=== PATIENT | male | born 1965 | race Caucasian/White ===

== ENCOUNTER 2017-06-01 07:09 | Emergency (ER) | payer BC ==
[~2017-06-01] VITALS: Ht 167.6 cm; Wt 95.5 kg
[~2017-06-01 07:09] MED LIST changes: -CIPR-214 PO; -EXEN2AUT; -HYDR2TAB74 PO; -KET10 PO; -METF-420 PO; -METR-160 PO; -ONDA4TAB PO
[2017-06-01] MEDS ORDERED: METF-420 PO (07:16)
[2017-06-01] MEDS ORDERED: OMEP-218 PO (07:16)
[2017-06-01] MEDS ORDERED: EXEN2AUT (07:16)
--- NOTE | 2017-06-01 07:22 | ER Report ---
History and Physical Time Seen By MD: 07:21 Hx. of Stated Complaint: pt reports pain in L groin that started this weekend, worse this morning HPI/ROS CHIEF COMPLAINT: left groin and abdominal pain HISTORY OF PRESENT ILLNESS: This is a 52 year old male. He started having some pain in the left lower abdomen and groin area on Thursday morning. Mild at that time. No instigating activity or movement. Slow worsening over the weekend. Today pain is severe with any movement. Pain stays in the abdomen, does not radiate to back, leg or scrotum. No fevers or chills. Normal urination. Normal bowels. No testicular or scrotal pain. Has not noted a bulging or hardness/mass in abdomen. No history of bowel problems. No surgeries. Pain does worsen with any movement and worsens with flexion of the left leg. REVIEW OF SYSTEMS: Constitutional: No fever or chills. Cardiovascular: No chest pain. Respiratory: No shortness of breath. Gastrointestinal: As above. Genitourinary: As above. Musculoskeletal: No back pain. No extremity pain. Skin: No rashes. Allergies: Coded Allergies: Penicillins (Verified Allergy, Severe, itching and swelling of throat, ) codeine (Verified Allergy, Mild, ITCHING HIVES, 06/01/17) propoxyphene (Unverified Allergy, Unknown, 06/01/17) oxycodone (Verified Adverse Reaction, Mild, EXCESSIVE SEDATION, 06/01/17) Home Meds Active Scripts Ketorolac Tromethamine (KETOROLAC TROMETHAMINE) 10 Mg Tab, 10 MG PO Q6H Y for PAIN, #12 TAB 0 Refills Prov:RODRIGO DINERO MD 06/01/17 Ondansetron (ZOFRAN ODT) 4 Mg Tab.rapdis, 4 MG PO Q6H Y for NAUSEA/VOMITING, # 20 TAB.JONATHAN 0 Refills Prov:RODRIGO DINERO MD 06/01/17 Hydromorphone Hcl (DILAUDID) 2 Mg Tablet, 1 MG PO Q4H Y for PAIN, #8 TAB 0 Refills Prov:RODRIGO DINERO MD 06/01/17 Metronidazole (METRONIDAZOLE) 500 Mg Tablet, 500 MG PO TID, #21 TAB 0 Refills Prov:RODRIGO DINERO MD 06/01/17 Ciprofloxacin Hcl (CIPROFLOXACIN HCL) 500 Mg Tablet, 500 MG PO Q12H, #14 TAB 0 Refills Prov:RODRIGO DINERO MD 06/01/17 Reported Medications Exenatide Microspheres (Bydureon Bcise) 2 Mg/0.85 Ml Auto.injct, QWEEK 06/01/17 Omeprazole Magnesium (PRILOSEC OTC) 20 Mg Tablet.dr, 1 TAB PO QDAY, TAB 06/01/17 Metformin Hcl (METFORMIN HCL) 1,000 Mg Tablet, 1 TAB PO BID, TAB 06/01/17 Discontinued Reported Medications Omeprazole (Omeprazole) 20 Mg Tablet.dr, 20 MG PO QDAY, 0 Refills 10/17/10 Metformin Hcl (Glucophage) 500 Mg Tab, 500 MG PO BIDBS, 0 Refills 10/17/10 [No Rtn Meds] No Conflict Check, 0 Refills 07/16/10 Reviewed Nurses Notes: Yes Hx Smoking: No Smoking Status: Never Smoker Hx Substance Use Disorder: No Hx Alcohol Use: Yes Constitutional Vital Sign - Last 24 Hours 06/01/17 06/01/17 06/01/17 06/01/17 07:12 07:15 07:24 07:39 Temp 98.7 Pulse 109 102 100 Resp 16 B/P (MAP) 142/119 142/119 (127) Pulse Ox 91 90 91 O2 Delivery Room Air 06/01/17 06/01/17 06/01/17 06/01/17 07:54 07:59 08:14 08:29 Pulse 105 104 104 95 B/P (MAP) 103/87 (92) Pulse Ox 89 91 90 94 06/01/17 06/01/17 06/01/17 06/01/17 08:34 08:39 08:44 08:49 Pulse 102 98 97 101 Pulse Ox 89 90 91 06/01/17 06/01/17 06/01/17 06/01/17 08:54 08:59 09:00 09:05 Pulse 100 100 101 B/P (MAP) 97/64 (75) Pulse Ox 91 93 92 06/01/17 06/01/17 06/01/17 06/01/17 09:10 09:15 09:20 09:23 Pulse 102 102 105 B/P (MAP) 108/81 (90) Pulse Ox 90 95 91 Physical Exam General Appearance: The patient is alert. Acute distress due to pain. Eyes: Pupils are equal, round. No pallor, injection or icterus. ENT: Mucous membranes are moist. Normal oral mucosa. Respiratory: Lungs are clear to auscultation. Cardiovascular: Regular rate and rhythm. No murmurs, gallops or rubs. Gastrointestinal: Abdomen is tender in the left lower abdomen. Nondistended. Guarding, but without rebound. No masses or bulging. Normal active bowel sounds. No costovertebral angle tenderness with percussion. Genitourinary: Testicles and scrotum are non-tender. No bulging with increased intraabdominal pressure. Neurological: Alert and oriented x3. Skin: Warm and dry. Musculoskeletal: No pain in the low back or the muscles of the groin. DIFFERENTIAL DIAGNOSIS: After history and physical exam, differential diagnosis was considered for left lower abdominal pain including but not limited to diverticulitis, gastroenteritis, urinary infection, hernias. Medical Decision Making Data Points Result Diagram: 06/01/17 0735 06/01/17 0735 Laboratory Hematology Test 06/01/17 07:20 06/01/17 07:35 Urine Color Yellow Urine Clarity Clear Urine pH 7.0 pH (4.8-9.5) Urine Specific [place] 1.027 Urine Protein Negative mg/dL (NEGATIVE) Urine Glucose (UA) Negative mg/dL (NEGATIVE) Urine Ketones Trace mg/dL (NEGATIVE) Urine Blood Negative (NEGATIVE) Urine Nitrite Negative (NEGATIVE) Urine Bilirubin Negative (NEGATIVE) Urine Urobilinogen 2.0 mg/dL (0.2-1.9) Urine Leukocyte Esterase Negative (NEGATIVE) Urine RBC None /HPF (0-2/HPF) Urine WBC <1 /HPF (0-5/HPF) Urine Squamous Epithelial Cells None /LPF (</=FEW) Urine Bacteria Negative /HPF (NONE-FEW) Urine Mucus Few /HPF (NONE-FEW) Red Blood Count 6.22 M/uL (4.00-5.60) Mean Corpuscular Volume 82.1 fL (80.0-96.0) Mean Corpuscular Hemoglobin 27.9 pg (26.0-33.0) Mean Corpuscular Hemoglobin Concent 34.0 g/dL (32.0-36.0) Red Cell Distribution Width 13.5 % (11.5-14.5) Mean Platelet Volume 9.0 fL (7.2-11.1) Neutrophils (%) (Auto) 68.7 % (39.4-72.5) Lymphocytes (%) (Auto) 18.5 % (17.6-49.6) Monocytes (%) (Auto) 11.0 % (4.1-12.4) Eosinophils (%) (Auto) 1.2 % (0.4-6.7) Basophils (%) (Auto) 0.6 % (0.3-1.4) Nucleated RBC Relative Count (auto) 0.0 /100WBC Neutrophils # (Auto) 9.0 K/uL (2.0-7.4) Lymphocytes # (Auto) 2.4 K/uL (1.3-3.6) Monocytes # (Auto) 1.4 K/uL (0.3-1.0) Eosinophils # (Auto) 0.2 K/uL (0.0-0.5) Basophils # (Auto) 0.1 K/uL (0.0-0.1) Nucleated RBC Absolute Count (auto) 0.00 K/uL Peripheral Blood Smear No Y/N Sodium Level 136 mmol/L (137-145) Potassium Level 3.9 mmol/L (3.5-5.0) Chloride Level 98 mmol/L (98-107) Carbon Dioxide Level 23 mmol/L (22-30) Blood Urea Nitrogen 11 mg/dl (9-21) Creatinine 0.70 mg/dl (0.66-1.25) Glomerular Filtration Rate Calc > 60.0 Random Glucose 158 mg/dl (75-110) Lactate 2.4 mmol/L (0.7-2.1) Calcium Level 9.4 mg/dl (8.4-10.2) Total Bilirubin 0.7 mg/dl (0.2-1.3) Aspartate Amino Transf (AST/SGOT) 25 U/L (0-35) Alanine Aminotransferase (ALT/SGPT) 56 U/L (0-56) Alkaline Phosphatase 78 U/L (0-126) Total Protein 7.8 gm/dl (6.3-8.2) Albumin 4.2 g/dl (3.5-5.0) Chemistry Test 06/01/17 07:20 06/01/17 07:35 Urine Color Yellow Urine Clarity Clear Urine pH 7.0 pH (4.8-9.5) Urine Specific [place] 1.027 Urine Protein Negative mg/dL (NEGATIVE) Urine Glucose (UA) Negative mg/dL (NEGATIVE) Urine Ketones Trace mg/dL (NEGATIVE) Urine Blood Negative (NEGATIVE) Urine Nitrite Negative (NEGATIVE) Urine Bilirubin Negative (NEGATIVE) Urine Urobilinogen 2.0 mg/dL (0.2-1.9) Urine Leukocyte Esterase Negative (NEGATIVE) Urine RBC None /HPF (0-2/HPF) Urine WBC <1 /HPF (0-5/HPF) Urine Squamous Epithelial Cells None /LPF (</=FEW) Urine Bacteria Negative /HPF (NONE-FEW) Urine Mucus Few /HPF (NONE-FEW) White Blood Count 13.2 k/uL (4.5-11.0) Red Blood Count 6.22 M/uL (4.00-5.60) Hemoglobin 17.3 g/dL (14.0-18.0) Hematocrit 51.0 % (42.0-52.0) Mean Corpuscular Volume 82.1 fL (80.0-96.0) Mean Corpuscular Hemoglobin 27.9 pg (26.0-33.0) Mean Corpuscular Hemoglobin Concent 34.0 g/dL (32.0-36.0) Red Cell Distribution Width 13.5 % (11.5-14.5) Platelet Count 285 K/uL (150-450) Mean Platelet Volume 9.0 fL (7.2-11.1) Neutrophils (%) (Auto) 68.7 % (39.4-72.5) Lymphocytes (%) (Auto) 18.5 % (17.6-49.6) Monocytes (%) (Auto) 11.0 % (4.1-12.4) Eosinophils (%) (Auto) 1.2 % (0.4-6.7) Basophils (%) (Auto) 0.6 % (0.3-1.4) Nucleated RBC Relative Count (auto) 0.0 /100WBC Neutrophils # (Auto) 9.0 K/uL (2.0-7.4) Lymphocytes # (Auto) 2.4 K/uL (1.3-3.6) Monocytes # (Auto) 1.4 K/uL (0.3-1.0) Eosinophils # (Auto) 0.2 K/uL (0.0-0.5) Basophils # (Auto) 0.1 K/uL (0.0-0.1) Nucleated RBC Absolute Count (auto) 0.00 K/uL Peripheral Blood Smear No Y/N Glomerular Filtration Rate Calc > 60.0 Lactate 2.4 mmol/L (0.7-2.1) Calcium Level 9.4 mg/dl (8.4-10.2) Total Bilirubin 0.7 mg/dl (0.2-1.3) Aspartate Amino Transf (AST/SGOT) 25 U/L (0-35) Alanine Aminotransferase (ALT/SGPT) 56 U/L (0-56) Alkaline Phosphatase 78 U/L (0-126) Total Protein 7.8 gm/dl (6.3-8.2) Albumin 4.2 g/dl (3.5-5.0) Urinalysis Test 06/01/17 07:20 Urine Color Yellow Urine Clarity Clear Urine pH 7.0 pH (4.8-9.5) Urine Specific [place] 1.027 Urine Protein Negative mg/dL (NEGATIVE) Urine Glucose (UA) Negative mg/dL (NEGATIVE) Urine Ketones Trace mg/dL (NEGATIVE) Urine Blood Negative (NEGATIVE) Urine Nitrite Negative (NEGATIVE) Urine Bilirubin Negative (NEGATIVE) Urine Urobilinogen 2.0 mg/dL (0.2-1.9) Urine Leukocyte Esterase Negative (NEGATIVE) Urine RBC None /HPF (0-2/HPF) Urine WBC <1 /HPF (0-5/HPF) Urine Squamous Epithelial Cells None /LPF (</=FEW) Urine Bacteria Negative /HPF (NONE-FEW) Urine Mucus Few /HPF (NONE-FEW) EKG/Imaging Imaging ABDOMEN/PELVIS WITH CONTRAST HISTORY: left lower abdominal pain TECHNIQUE: Following administration of IV contrast contiguous axial images acquired through the abdomen/pelvis. Coronal and sagittal reformatting also performed. Dose Lowering Technique One of the following dose optimization techniques was utilized in the performance of this exam: Automated exposure control; adjustment of the mA and/ or kV according to the patient's size; or use of an iterative reconstruction technique. Specific details can be referenced in the facility's radiology CT exam operational policy. CONTRAST: 75 mL Isovue-370 COMPARISON: None. FINDINGS: Visualized lung bases: There is mild linear stranding in the inferior lingula Hepatobiliary: There are postsurgical changes from a cholecystectomy. There is diffuse hepatic steatosis Spleen: There is a tiny hypodensity in the spleen too small to characterize Adrenals: Negative. Pancreas: Negative. Kidneys ureters or bladder: There is mild perinephric stranding bilaterally Genitalia: Negative GI: There is diverticulosis throughout the left-sided colon and focal thickening and inflammation of the mid to distal descending colon with inflammatory change in the pericolonic fat. There is no evidence of extraluminal air or abscess. Vessels/spaces/nodes: Negative. Bones/soft tissues: Mild spondylotic changes of the thoracolumbar spine Additional findings: None pertinent. IMPRESSION: Findings are consistent with acute diverticulitis in the mid to distal descending colon although no evidence of perforation or focal abscess formation Diffuse hepatic steatosis Postsurgical changes from a cholecystectomy Additional chronic findings as described Report Dictated By: Pia Levine MD at 06/01/2017 8:46 AM ED Course/Re-evaluation Clinical Indication for ER IV: Hydration, IV Access ED Course Initially, after history and physical exam, the patient did not want any pain medicine, but after the CT scan requested something for pain. Morphine 4mg IV and Zofran 4mg IV were given. CT scan shows diverticulitis. Discussed the diagnosis and treatment with the patient. Started on Cipro and Flagyl. Home with Toradol one every 6 hours, for more severe pain half of a dilaudid tablet, and Zofran every 6 hours as needed for nausea. Decision to Disposition Date: Jun 01, 2017 Decision to Disposition Time: 09:17 Depart Departure Latest Vital Signs Vital Signs Date Time Temp Pulse Resp B/P (MAP) Pulse Ox O2 Delivery O2 Flow Rate FiO2 06/01/17 09:23 108/81 (90) 06/01/17 09:20 105 91 06/01/17 07:12 98.7 16 Room Air Impression: Primary Impression: Diverticulitis Condition: Improved Disposition: HOME OR SELF-CARE Referrals: PARTH JONES MD (PCP) New Scripts Ketorolac Tromethamine (KETOROLAC TROMETHAMINE) 10 Mg Tab 10 MG PO Q6H Y for PAIN, #12 TAB 0 Refills Prov: RODRIGO DINERO MD 06/01/17 Ondansetron (ZOFRAN ODT) 4 Mg Tab.rapdis 4 MG PO Q6H Y for NAUSEA/VOMITING, #20 TAB.JONATHAN 0 Refills Prov: RODRIGO DINERO MD 06/01/17 Hydromorphone Hcl (DILAUDID) 2 Mg Tablet 1 MG PO Q4H Y for PAIN, #8 TAB 0 Refills Prov: RODRIGO DINERO MD 06/01/17 Metronidazole (METRONIDAZOLE) 500 Mg Tablet 500 MG PO TID, #21 TAB 0 Refills Prov: RODRIGO DINERO MD 06/01/17 Ciprofloxacin Hcl (CIPROFLOXACIN HCL) 500 Mg Tablet 500 MG PO Q12H, #14 TAB 0 Refills Prov: RODRIGO DINERO MD 06/01/17 Patient Instructions: Diverticulitis (ED) Additional Instructions: Take Ciprofloxacin 500mg twice a day for 7 days. Take Metronidazole 500mg three times a day for 7 days. For pain, you can use Toradol 10mg, one every 6 hours as needed for pain. For more severe pain, you can use Dilaudid 2mg tablets, 1/2 tablet every 4 hours. For nausea, you can take Zofran 4mg every 6 hours as needed for nausea. Off work today and tomorrow. Follow-up with your primary care provider either later this week or next week for re-evaluation. RODRIGO DINERO MD Jun 01, 2017 07:22
[2017-06-01 07:53] LABS: PLATELET COUNT, AUTOMATED 285 K/uL (150-450)
[2017-06-01] MEDS ORDERED: IOPAMIDOL 76% 75 ML INFUS BTL 75 ML ONE (08:20)
--- NOTE | 2017-06-01 09:01 | RADIOLOGY IMAGING REPORT ---
FACILITY: [facility] - [place] PATIENT NAME: Harpal Thomas : 1965 MR: [id number] V: [id number] EXAM DATE: ORDERING PHYSICIAN: RODRIGO DINERO TECHNOLOGIST: [facility] Patient: Harpal Thomas : 1965 Visit/Account:[id number] Date of Sevice: 06/01/2017 ABDOMEN/PELVIS WITH CONTRAST HISTORY: left lower abdominal pain TECHNIQUE: Following administration of IV contrast contiguous axial images acquired through the abdom en/pelvis. Coronal and sagittal reformatting also performed. Dose Lowering Technique One of the following dose optimization techniques was utilized in the performance of this exam: Autom ated exposure control; adjustment of the mA and/or kV according to the patient's size; or use of an i terative reconstruction technique. Specific details can be referenced in the facility's radiology C T exam operational policy. CONTRAST: 75 mL Isovue-370 COMPARISON: None. FINDINGS: Visualized lung bases: There is mild linear stranding in the inferior lingula Hepatobiliary: There are postsurgical changes from a cholecystectomy. There is diffuse hepatic stea tosis Spleen: There is a tiny hypodensity in the spleen too small to characterize Adrenals: Negative. Pancreas: Negative. Kidneys ureters or bladder: There is mild perinephric stranding bilaterally Genitalia: Negative GI: There is diverticulosis throughout the left-sided colon and focal thickening and inflammation of the mid to distal descending colon with inflammatory change in the pericolonic fat. There is no richard dence of extraluminal air or abscess. Vessels/spaces/nodes: Negative. Bones/soft tissues: Mild spondylotic changes of the thoracolumbar spine Additional findings: None pertinent. IMPRESSION: Findings are consistent with acute diverticulitis in the mid to distal descending colon although no e vidence of perforation or focal abscess formation Diffuse hepatic steatosis Postsurgical changes from a cholecystectomy Additional chronic findings as described Report Dictated By: Pia Levine MD at 06/01/2017 8:46 AM Report E-Signed By: Pia Levine MD at 06/01/2017 8:56 AM WSN:[email or web address]
[2017-06-01] MEDS ORDERED: MORPHINE 4 MG/ML SDV IVP ONE (09:05)
[2017-06-01] MEDS ORDERED: ONDANSETRON 4 MG/2 ML VIAL IVP ONE (09:05)
[2017-06-01] MEDS ORDERED: METRONIDAZOLE 500 MG TABLET PO ONE (09:15)
[2017-06-01] MEDS ORDERED: CIPROFLOXACIN 500 MG TAB PO ONE (09:15)
[2017-06-01] MEDS ORDERED: ONDA4TAB PO (09:22)
[2017-06-01] MEDS ORDERED: METR-160 PO (09:22)
[2017-06-01] MEDS ORDERED: CIPR-214 PO (09:22)
[2017-06-01] MEDS ORDERED: HYDR2TAB74 PO (09:22)
[2017-06-01 09:23] VITALS: BP 108/81
[2017-06-01] MEDS ORDERED: KET10 PO (09:24)
== END 2017-06-01 09:30 | disposition home or self-care (01) ==
LOC: ER 07:10
DX: K57.92 Diverticulitis of intestine, part unspecified, without perforation or abscess without bleeding (principal)
CPT/HCPCS: 74177; 81001; 83605; 85025; 96374; 96375; 99284; J2270; J2405; Q9967; 82040; 82247; 82310; 82374; 82435; 82565; 82947; 84075; 84132; 84155; 84295; 84450; 84460; 84520

== ENCOUNTER 2017-06-01 11:10 | Observation (INO) | payer BC ==
[~2017-06-01] VITALS: Ht 167.6 cm; Wt 96.2 kg
[~2017-06-01 11:10] MED LIST changes: +CIPR-214 PO; +EXEN2AUT; +HYDR2TAB74 PO; +KET10 PO; +METF-420 PO; +METR-160 PO; +ONDA4TAB PO
[2017-06-01] MEDS ORDERED: ONDANSETRON 4 MG/2 ML VIAL IVP ONE (11:20)
[2017-06-01] MEDS ORDERED: ASPIRIN 81 MG CHEW PO ONE (11:20)
--- NOTE | 2017-06-01 11:23 | ER Report ---
History and Physical Time Seen By MD: 11:12 Hx. of Stated Complaint: pt was just here for diverticulitis, was given morphine in ED and then DC'd, pt was waiting for in car when he started having shallow breathing and decreased consciousness according to . ems called and gave pt 0.4 intranasal Narcan. BG reported by EMS at 63 but in ED was 162. ([facility]) HPI/ROS CHIEF COMPLAINT: Near syncope HISTORY OF PRESENT ILLNESS: This is a 52-year-old male who presents to the emergency department via EMS for a near syncopal episode. Patient was just discharged from the emergency department, and was diagnosed with diverticulitis. Patient states he and his was were at [facility] picking up his prescription, while he was sitting in the car he said he had some tunnel vision. His got in the car they were driving home and she noticed that he was very close to passing out she pulled over to the side of the road, his breathing changed and he " had some gurgling type of breathing", he turned "blue ". She shook him and told him to breathe, he did rouse and began to breathe, EMS arrived on scene and gave him intranasal Narcan shortly thereafter he began to come around and was loaded on the gurney and brought to the emergency department for further evaluation. Patient arrives alert and oriented, no chest pain or shortness of breath at this time. Patient did state that during this event he did have some shortness of breath but denies chest pain. No numbness or tingling, no diaphoresis, headaches, nausea or vomiting. REVIEW OF SYSTEMS: Constitutional: No fever, no chills. Eyes: No discharge. ENT: No sore throat. Cardiovascular: No chest pain, no palpitations. Respiratory: No cough, no shortness of breath. Gastrointestinal: No abdominal pain, no vomiting. Genitourinary: No hematuria. Musculoskeletal: No back pain. Skin: No rashes. Neurological: As above. ([facility]) Allergies: Coded Allergies: Penicillins (Verified Allergy, Severe, itching and swelling of throat, ) codeine (Verified Allergy, Mild, ITCHING HIVES, 06/01/17) propoxyphene (Unverified Allergy, Unknown, 06/01/17) oxycodone (Verified Adverse Reaction, Mild, EXCESSIVE SEDATION, 06/01/17) Home Meds Active Scripts Ketorolac Tromethamine (KETOROLAC TROMETHAMINE) 10 Mg Tab, 10 MG PO Q6H Y for PAIN, #12 TAB 0 Refills Prov:RODRIGO DINERO MD 06/01/17 Ondansetron (ZOFRAN ODT) 4 Mg Tab.rapdis, 4 MG PO Q6H Y for NAUSEA/VOMITING, # 20 TAB.JONATHAN 0 Refills Prov:RODRIGO DINERO MD 06/01/17 Hydromorphone Hcl (DILAUDID) 2 Mg Tablet, 1 MG PO Q4H Y for PAIN, #8 TAB 0 Refills Prov:RODRIGO DINERO MD 06/01/17 Metronidazole (METRONIDAZOLE) 500 Mg Tablet, 500 MG PO TID, #21 TAB 0 Refills Prov:RODRIGO DINERO MD 06/01/17 Ciprofloxacin Hcl (CIPROFLOXACIN HCL) 500 Mg Tablet, 500 MG PO Q12H, #14 TAB 0 Refills Prov:RODRIGO DINERO MD 06/01/17 Reported Medications Exenatide Microspheres (Bydureon Bcise) 2 Mg/0.85 Ml Auto.injct, QWEEK 06/01/17 Omeprazole Magnesium (PRILOSEC OTC) 20 Mg Tablet.dr, 1 TAB PO QDAY, TAB 06/01/17 Metformin Hcl (METFORMIN HCL) 1,000 Mg Tablet, 1 TAB PO BID, TAB 06/01/17 Discontinued Reported Medications Omeprazole (Omeprazole) 20 Mg Tablet.dr, 20 MG PO QDAY, 0 Refills 10/17/10 Metformin Hcl (Glucophage) 500 Mg Tab, 500 MG PO BIDBS, 0 Refills 10/17/10 [No Rtn Meds] No Conflict Check, 0 Refills 07/16/10 Past Medical/Surgical History The patient has a past medical and surgical history of seizures, migraines, chest pain, hypertension, hypercholesterolemia, GERD, gallbladder disease, arthritis, type II diabetes, bilateral knee surgeries, shoulder surgery. ([facility]) Reviewed Nurses Notes: Yes ([facility]) Hx Smoking: No Smoking Status: Never Smoker Hx Substance Use Disorder: No Hx Alcohol Use: Yes ([facility] [employer]) Constitutional Vital Sign - Last 24 Hours 06/01/17 06/01/17 06/01/17 06/01/17 11:10 11:12 11:25 11:30 Temp 98.0 Pulse 94 94 Resp 16 B/P (MAP) 112/80 (91) 112/80 114/84 (94) Pulse Ox 95 94 O2 Delivery Nasal Cannula 06/01/17 06/01/17 06/01/17 06/01/17 11:40 11:55 12:00 12:10 Pulse 96 93 95 B/P (MAP) 119/87 (98) 105/84 (91) Pulse Ox 93 96 94 06/01/17 06/01/17 06/01/17 06/01/17 12:25 12:30 12:40 12:55 Pulse 95 93 93 B/P (MAP) 103/74 (84) Pulse Ox 94 95 94 06/01/17 06/01/17 06/01/17 06/01/17 13:00 13:05 13:20 13:30 Pulse 91 89 B/P (MAP) 104/88 (93) 105/75 (85) Pulse Ox 94 94 06/01/17 13:35 Pulse 84 Pulse Ox 94 Physical Exam General Appearance: The patient is alert, has no immediate need for airway protection and no signs of toxicity. Eyes: Pupils equal and round no pallor or injection. ENT, Mouth: Mucous membranes are moist. Respiratory: There are no retractions, lungs are clear to auscultation. Cardiovascular: Regular rate and rhythm, no murmurs, clicks or rubs. No carotid bruits. Gastrointestinal: Abdomen is soft and non tender, no masses, bowel sounds normal. Left lower quadrant pain with palpation. No abdominal bruits. Neurological: Alert and oriented 4. Moving all x-rays. Following all commands. No focal neuro deficits. Skin: Warm and dry, no rashes. Musculoskeletal: Neck is supple non tender. Extremities are nontender, nonswollen and have full range of motion. DIFFERENTIAL DIAGNOSIS: After history and physical exam differential diagnosis was considered for dizziness including but not limited to peripheral and central causes of vertigo, orthostatic causes including dehydration, NH, hypersensitivity to narcotics and blood loss. 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[employer]) Constitutional Vital Sign - Last 24 Hours 06/01/17 06/01/17 06/01/17 06/01/17 11:10 11:12 11:25 11:30 Temp 98.0 Pulse 94 94 Resp 16 B/P (MAP) 112/80 (91) 112/80 114/84 (94) Pulse Ox 95 94 O2 Delivery Nasal Cannula 06/01/17 06/01/17 06/01/17 06/01/17 11:40 11:55 12:00 12:10 Pulse 96 93 95 B/P (MAP) 119/87 (98) 105/84 (91) Pulse Ox 93 96 94 06/01/17 06/01/17 06/01/17 06/01/17 12:25 12:30 12:40 12:55 Pulse 95 93 93 B/P (MAP) 103/74 (84) Pulse Ox 94 95 94 06/01/17 06/01/17 06/01/17 06/01/17 13:00 13:05 13:20 13:30 Pulse 91 89 B/P (MAP) 104/88 (93) 105/75 (85) Pulse Ox 94 94 06/01/17 13:35 Pulse 84 Pulse Ox 94 ([facility],RODRIGO Darby MD) Medical Decision Making Data Points Result Diagram: 06/01/17 1133 06/01/17 1133 Laboratory Hematology Test 06/01/17 11:16 06/01/17 11:33 Whole Blood Glucose 162 mg/DL (75-110) Red Blood Count 6.01 M/uL (4.00-5.60) Mean Corpuscular Volume 82.1 fL (80.0-96.0) Mean Corpuscular Hemoglobin 27.9 pg (26.0-33.0) Mean Corpuscular Hemoglobin Concent 33.9 g/dL (32.0-36.0) Red Cell Distribution Width 13.9 % (11.5-14.5) Mean Platelet Volume 8.9 fL (7.2-11.1) Neutrophils (%) (Auto) 64.7 % (39.4-72.5) Lymphocytes (%) (Auto) 24.9 % (17.6-49.6) Monocytes (%) (Auto) 9.0 % (4.1-12.4) Eosinophils (%) (Auto) 0.8 % (0.4-6.7) Basophils (%) (Auto) 0.6 % (0.3-1.4) Nucleated RBC Relative Count (auto) 0.0 /100WBC Neutrophils # (Auto) 9.2 K/uL (2.0-7.4) Lymphocytes # (Auto) 3.6 K/uL (1.3-3.6) Monocytes # (Auto) 1.3 K/uL (0.3-1.0) Eosinophils # (Auto) 0.1 K/uL (0.0-0.5) Basophils # (Auto) 0.1 K/uL (0.0-0.1) Nucleated RBC Absolute Count (auto) 0.01 K/uL Peripheral Blood Smear No Y/N Sodium Level 134 mmol/L (137-145) Potassium Level 3.7 mmol/L (3.5-5.0) Chloride Level 99 mmol/L (98-107) Carbon Dioxide Level 22 mmol/L (22-30) Blood Urea Nitrogen 11 mg/dl (9-21) Creatinine 0.60 mg/dl (0.66-1.25) Glomerular Filtration Rate Calc > 60.0 Random Glucose 185 mg/dl (75-110) Calcium Level 8.9 mg/dl (8.4-10.2) Total Bilirubin 0.8 mg/dl (0.2-1.3) Aspartate Amino Transf (AST/SGOT) 40 U/L (0-35) Alanine Aminotransferase (ALT/SGPT) 59 U/L (0-56) Alkaline Phosphatase 78 U/L (0-126) Troponin I < 0.012 ng/ml Total Protein 7.6 gm/dl (6.3-8.2) Albumin 4.2 g/dl (3.5-5.0) Chemistry Test 06/01/17 11:16 06/01/17 11:33 Whole Blood Glucose 162 mg/DL (75-110) White Blood Count 14.3 k/uL (4.5-11.0) Red Blood Count 6.01 M/uL (4.00-5.60) Hemoglobin 16.7 g/dL (14.0-18.0) Hematocrit 49.4 % (42.0-52.0) Mean Corpuscular Volume 82.1 fL (80.0-96.0) Mean Corpuscular Hemoglobin 27.9 pg (26.0-33.0) Mean Corpuscular Hemoglobin Concent 33.9 g/dL (32.0-36.0) Red Cell Distribution Width 13.9 % (11.5-14.5) Platelet Count 319 K/uL (150-450) Mean Platelet Volume 8.9 fL (7.2-11.1) Neutrophils (%) (Auto) 64.7 % (39.4-72.5) Lymphocytes (%) (Auto) 24.9 % (17.6-49.6) Monocytes (%) (Auto) 9.0 % (4.1-12.4) Eosinophils (%) (Auto) 0.8 % (0.4-6.7) Basophils (%) (Auto) 0.6 % (0.3-1.4) Nucleated RBC Relative Count (auto) 0.0 /100WBC Neutrophils # (Auto) 9.2 K/uL (2.0-7.4) Lymphocytes # (Auto) 3.6 K/uL (1.3-3.6) Monocytes # (Auto) 1.3 K/uL (0.3-1.0) Eosinophils # (Auto) 0.1 K/uL (0.0-0.5) Basophils # (Auto) 0.1 K/uL (0.0-0.1) Nucleated RBC Absolute Count (auto) 0.01 K/uL Peripheral Blood Smear No Y/N Glomerular Filtration Rate Calc > 60.0 Calcium Level 8.9 mg/dl (8.4-10.2) Total Bilirubin 0.8 mg/dl (0.2-1.3) Aspartate Amino Transf (AST/SGOT) 40 U/L (0-35) Alanine Aminotransferase (ALT/SGPT) 59 U/L (0-56) Alkaline Phosphatase 78 U/L (0-126) Troponin I < 0.012 ng/ml Total Protein 7.6 gm/dl (6.3-8.2) Albumin 4.2 g/dl (3.5-5.0) ([facility]) Laboratory Hematology Test 06/01/17 11:16 06/01/17 11:33 Whole Blood Glucose 162 mg/DL (75-110) Red Blood Count 6.01 M/uL (4.00-5.60) Mean Corpuscular Volume 82.1 fL (80.0-96.0) Mean Corpuscular Hemoglobin 27.9 pg (26.0-33.0) Mean Corpuscular Hemoglobin Concent 33.9 g/dL (32.0-36.0) Red Cell Distribution Width 13.9 % (11.5-14.5) Mean Platelet Volume 8.9 fL (7.2-11.1) Neutrophils (%) (Auto) 64.7 % (39.4-72.5) Lymphocytes (%) (Auto) 24.9 % (17.6-49.6) Monocytes (%) (Auto) 9.0 % (4.1-12.4) Eosinophils (%) (Auto) 0.8 % (0.4-6.7) Basophils (%) (Auto) 0.6 % (0.3-1.4) Nucleated RBC Relative Count (auto) 0.0 /100WBC Neutrophils # (Auto) 9.2 K/uL (2.0-7.4) Lymphocytes # (Auto) 3.6 K/uL (1.3-3.6) Monocytes # (Auto) 1.3 K/uL (0.3-1.0) Eosinophils # (Auto) 0.1 K/uL (0.0-0.5) Basophils # (Auto) 0.1 K/uL (0.0-0.1) Nucleated RBC Absolute Count (auto) 0.01 K/uL Peripheral Blood Smear No Y/N Sodium Level 134 mmol/L (137-145) Potassium Level 3.7 mmol/L (3.5-5.0) Chloride Level 99 mmol/L (98-107) Carbon Dioxide Level 22 mmol/L (22-30) Blood Urea Nitrogen 11 mg/dl (9-21) Creatinine 0.60 mg/dl (0.66-1.25) Glomerular Filtration Rate Calc > 60.0 Random Glucose 185 mg/dl (75-110) Calcium Level 8.9 mg/dl (8.4-10.2) Total Bilirubin 0.8 mg/dl (0.2-1.3) Aspartate Amino Transf (AST/SGOT) 40 U/L (0-35) Alanine Aminotransferase (ALT/SGPT) 59 U/L (0-56) Alkaline Phosphatase 78 U/L (0-126) Troponin I < 0.012 ng/ml Total Protein 7.6 gm/dl (6.3-8.2) Albumin 4.2 g/dl (3.5-5.0) Chemistry Test 06/01/17 11:16 06/01/17 11:33 Whole Blood Glucose 162 mg/DL (75-110) White Blood Count 14.3 k/uL (4.5-11.0) Red Blood Count 6.01 M/uL (4.00-5.60) Hemoglobin 16.7 g/dL (14.0-18.0) Hematocrit 49.4 % (42.0-52.0) Mean Corpuscular Volume 82.1 fL (80.0-96.0) Mean Corpuscular Hemoglobin 27.9 pg (26.0-33.0) Mean Corpuscular Hemoglobin Concent 33.9 g/dL (32.0-36.0) Red Cell Distribution Width 13.9 % (11.5-14.5) Platelet Count 319 K/uL (150-450) Mean Platelet Volume 8.9 fL (7.2-11.1) Neutrophils (%) (Auto) 64.7 % (39.4-72.5) Lymphocytes (%) (Auto) 24.9 % (17.6-49.6) Monocytes (%) (Auto) 9.0 % (4.1-12.4) Eosinophils (%) (Auto) 0.8 % (0.4-6.7) Basophils (%) (Auto) 0.6 % (0.3-1.4) Nucleated RBC Relative Count (auto) 0.0 /100WBC Neutrophils # (Auto) 9.2 K/uL (2.0-7.4) Lymphocytes # (Auto) 3.6 K/uL (1.3-3.6) Monocytes # (Auto) 1.3 K/uL (0.3-1.0) Eosinophils # (Auto) 0.1 K/uL (0.0-0.5) Basophils # (Auto) 0.1 K/uL (0.0-0.1) Nucleated RBC Absolute Count (auto) 0.01 K/uL Peripheral Blood Smear No Y/N Glomerular Filtration Rate Calc > 60.0 Calcium Level 8.9 mg/dl (8.4-10.2) Total Bilirubin 0.8 mg/dl (0.2-1.3) Aspartate Amino Transf (AST/SGOT) 40 U/L (0-35) Alanine Aminotransferase (ALT/SGPT) 59 U/L (0-56) Alkaline Phosphatase 78 U/L (0-126) Troponin I < 0.012 ng/ml Total Protein 7.6 gm/dl (6.3-8.2) Albumin 4.2 g/dl (3.5-5.0) [facility] EKG/Imaging EKG Interpretation 12 lead EKG: EKG 1108. Rhythm: Normal sinus rhythm, ventricular rate 91 bpm. [place]: normal QRS: normal ST segments: No ST depression or elevation identified. [place] [facility] [place] Harpal [place] : 1965 Visit/Account:[id number] Date of Sevice: 06/01/2017 CHEST PA AND LAT INDICATION: Chest Pain COMPARISON: None available FINDINGS: Heart size within normal limits. There is no focal infiltrate or lobar consolidation. The lungs are hypoventilated There is no pneumothorax or pleural effusion. IMPRESSION: 1. No acute cardiopulmonary process. Report Dictated By: Gabriel Phillips at 06/01/2017 12:18 PM Report E-Signed By: Gabriel Phillips at 06/01/2017 12:18 PM [id number] ([facility] ED Course/Re-evaluation Clinical Indication for ER IV: Hydration, IV Access ED Course The patient was admitted to room via EMS. History and physical were obtained. Differential diagnoses were considered. An IV was started. A CBC, CMP and troponin were obtained. A torsed is unremarkable. Troponin was negative. EKG showing normal sinus rhythm. A 2 view chest x-ray was negative for any acute cardiopulmonary process. Patient was given 15 mg IV Toradol, with a very slight improvement in pain. I did review these results with the patient his and discussed possibility of admission to the hospital for observation. I did discuss this with Dr. Goddard as noted below Dr. Goddard has accepted the patient into his services and the patient will be admitted to medical surgical unit. After consultation with Dr. Luis Goddard I did give a 1 mg IV dose of morphine, another 15 mg IV dose of Toradol. The patient had no other questions or concerns at the time of admission. 06/01/2017 1:28:[address] Goddard did come down and visited with the patient he is accepted the patient into his services. Patient will be admitted to the medical surgical unit. Decision to Disposition Date: Jun 01, 2017 Decision to Disposition Time: 13:28 ([facility] Depart Departure Latest Vital Signs Vital Signs Date Time Temp Pulse Resp B/P (MAP) Pulse Ox O2 Delivery O2 Flow Rate FiO2 06/01/17 13:35 84 94 06/01/17 13:30 105/75 (85) 06/01/17 11:12 98.0 16 Nasal Cannula ([facility]-) Latest Vital Signs Vital Signs Date Time Temp Pulse Resp B/P (MAP) Pulse Ox O2 Delivery O2 Flow Rate FiO2 06/01/17 13:35 84 94 06/01/17 13:30 105/75 (85) 06/01/17 11:12 98.0 16 Nasal Cannula (RODRIGO DINERO MD) Impression: Primary Impression: Syncope Additional Impression: Diverticulitis Condition: Improved Disposition: Admitted from ER Referrals: PARTH JONES MD (PCP) RECREATION LEADER/PA consult with MD: Verbally, Examined Patient (RODRIGO DINERO MD) Problem Qualifiers Primary Impression: Syncope Syncope type: unspecified Qualified Codes: R55 - Syncope and collapse [facility]- Jun 01, 2017 11:23 RODRIGO DINERO MD Jun 01, 2017 11:58
[2017-06-01] MEDS ORDERED: KETOROLAC 15 MG/ML VIAL IVP ONE ×2 (11:45→14:05)
--- NOTE | 2017-06-01 11:46 | EKG ---
FACILITY: PATIENT NAME: MELVA MAHAJAN : [id number] MR: [id number] V: [id number] EXAM DATE: ORDERING PHYSICIAN: [facility] TECHNOLOGIST: HAMMAD Browne Reason : Blood Pressure : / mmHG Vent. Rate : 091 BPM Atrial Rate : 091 BPM P-R Int : 146 ms QRS Dur : 104 ms QT Int : 384 ms P-R-T Axes : 027 -01 007 degrees QTc Int : 472 ms Normal sinus rhythm Normal ECG Unchanged from previous Confirmed by CAITLIN BETH ([id number]) on 06/01/2017 2:29:20 PM Referred By: ROSETTE Confirmed By:CAITLIN BETH
[2017-06-01 11:49] LABS: PLATELET COUNT, AUTOMATED 319 K/uL (150-450)
--- NOTE | 2017-06-01 12:23 | RADIOLOGY IMAGING REPORT ---
FACILITY: [facility] [place] PATIENT NAME: Harpal Thomas : 1965 MR: [id number] V: [id number] EXAM DATE: ORDERING PHYSICIAN: [facility] NAVARRETE TECHNOLOGIST: [place] [facility] [place] Harpal [place] : 1965 Visit/Account:[id number] Date of Sevice: 06/01/2017 CHEST PA AND LAT INDICATION: Chest Pain COMPARISON: None available FINDINGS: Heart size within normal limits. There is no focal infiltrate or lobar consolidation. The lungs are hypoventilated There is no pneumothorax or pleural effusion. IMPRESSION: 1. No acute cardiopulmonary process. Report Dictated By: Gabriel Phillips at 06/01/2017 12:18 PM Report E-Signed By: Gabriel Phillips at 06/01/2017 12:18 PM WSN:[id number]
[2017-06-01] MEDS ORDERED: ACETAMINOPHEN(*)1000 MG/100 ML 100 ML IVPB ONE (12:45)
[2017-06-01] MEDS ORDERED: MORPHINE 2 MG/ML SYR IVP ONE (14:05)
[2017-06-01] MEDS ORDERED: NS(*) 0.9% 1000 ML BAG 1,000 ML IV PRN (14:12)
[2017-06-01] MEDS ORDERED: INSULIN HUM LISPRO 100 UN/ML 3 ML VIAL SUBQ PRN (14:15)
[2017-06-01] MEDS ORDERED: NAPROXEN 500 MG TAB PO PRN (14:15)
[2017-06-01] MEDS: METRONIDAZOLE 500 MG TABLET PO SCH ×2 (14:30→20:18)
--- NOTE | 2017-06-01 14:36 | History & Physical ---
History of Present Illness History of Present Illness 52yo male with a h/o T2DM who came back to the ER for syncope. 2 days ago, he developed LLQ pain. It worsened this morning, so went to the ER. He was found to have diverticulitis, but was able to tolerate oral intake so was sent home. Before discharge, he was given 4mg of IV morphine. About an hour later on the drive home, he told his he was getting tunnel vision and wasn't feeling right. Then she noticed him unconscious and gurgling. She stopped the car, and then shook him. He was able to awaken a bit, but was still sleepy. She called EMS. EMS ended up giving him Narcan, which woke him up completely. He remembers being in the ambulance and hasn't had any problems with consciousness since then. He has had similar episodes with codeine and Percocet. He has had morphine previously, without the same affect. He denies cp/sob/f/c/nausea. In the ER, he was given Zofran, IVF, Toradol and IV Tylenol. Before coming to the floor they are planning to give 1mg of morphine. History Problems: (1) T2DM (type 2 diabetes mellitus) Status: Chronic (2) GERD (gastroesophageal reflux disease) Status: Chronic (3) History of appendectomy (4) History of shoulder surgery (5) History of cholecystectomy Home Meds Active Scripts Ketorolac Tromethamine (KETOROLAC TROMETHAMINE) 10 Mg Tab, 10 MG PO Q6H Y for PAIN, #12 TAB 0 Refills Prov:RODRIGO DINERO MD 06/01/17 Ondansetron (ZOFRAN ODT) 4 Mg Tab.rapdis, 4 MG PO Q6H Y for NAUSEA/VOMITING, # 20 TAB.JONATHAN 0 Refills Prov:RODRIGO DINERO MD 06/01/17 Hydromorphone Hcl (DILAUDID) 2 Mg Tablet, 1 MG PO Q4H Y for PAIN, #8 TAB 0 Refills Prov:RODRIGO DINERO MD 06/01/17 Metronidazole (METRONIDAZOLE) 500 Mg Tablet, 500 MG PO TID, #21 TAB 0 Refills Prov:RODRIGO DINERO MD 06/01/17 Ciprofloxacin Hcl (CIPROFLOXACIN HCL) 500 Mg Tablet, 500 MG PO Q12H, #14 TAB 0 Refills Prov:RODRIGO DINERO MD 06/01/17 Reported Medications Exenatide Microspheres (Bydureon Bcise) 2 Mg/0.85 Ml Auto.injct, QWEEK 06/01/17 Omeprazole Magnesium (PRILOSEC OTC) 20 Mg Tablet.dr, 1 TAB PO QDAY, TAB 06/01/17 Metformin Hcl (METFORMIN HCL) 1,000 Mg Tablet, 1 TAB PO BID, TAB 06/01/17 Discontinued Reported Medications Omeprazole (Omeprazole) 20 Mg Tablet.dr, 20 MG PO QDAY, 0 Refills 10/17/10 Metformin Hcl (Glucophage) 500 Mg Tab, 500 MG PO BIDBS, 0 Refills 10/17/10 [No Rtn Meds] No Conflict Check, 0 Refills 07/16/10 Allergies: Coded Allergies: Penicillins (Verified Allergy, Severe, itching and swelling of throat, ) codeine (Verified Allergy, Mild, ITCHING HIVES, 06/01/17) propoxyphene (Unverified Allergy, Unknown, 06/01/17) oxycodone (Verified Adverse Reaction, Mild, EXCESSIVE SEDATION, 06/01/17) Hx Smoking: No Smoking Status: Never Smoker Hx Alcohol Use: Yes Hx Substance Use Disorder: No Review of Systems All Systems Reviewed/Normal: Yes, Except as Noted Exam Vital Signs Vital Signs Date Time Temp Pulse Resp B/P (MAP) Pulse Ox O2 Delivery O2 Flow Rate FiO2 06/01/17 13:00 104/88 (93) 06/01/17 12:55 93 94 06/01/17 11:12 98.0 16 Nasal Cannula General Appearance: Alert, Awake, No Acute Distress Neuro: No Gross deficits Eyes: PERRLA ENT: Moist Mucous Membranes Cardiovascular: Regular Rate and Rhythm Respiratory: Clear to Auscultation GI: Other (Soft, non-distended, hypoactive BS, pain in the LLQ with palpation. No peritoneal signs) Medical Decision Making Data Points Result Diagram: 06/01/17 1133 06/01/17 1133 Item Value Date Time White Blood Count 13.2 k/uL H 06/01/17 0735 White Blood Count 14.3 k/uL H 06/01/17 1133 Neutrophils (%) (Auto) 68.7 % 06/01/17 0735 Neutrophils (%) (Auto) 64.7 % 06/01/17 1133 Sodium Level 136 mmol/L L 06/01/17 0735 Sodium Level 134 mmol/L L 06/01/17 1133 Creatinine 0.60 mg/dl L 06/01/17 1133 Creatinine 0.70 mg/dl 06/01/17 0735 Blood Urea Nitrogen 11 mg/dl 06/01/17 0735 Blood Urea Nitrogen 11 mg/dl 06/01/17 1133 Whole Blood Glucose 162 mg/DL H 06/01/17 1116 Random Glucose 158 mg/dl H 06/01/17 0735 Lactate 2.4 mmol/L H 06/01/17 0735 Random Glucose 185 mg/dl H 06/01/17 1133 Calcium Level 8.9 mg/dl 06/01/17 1133 Total Bilirubin 0.8 mg/dl 06/01/17 1133 Aspartate Amino Transf (AST/SGOT) 40 U/L H 06/01/17 1133 Alanine Aminotransferase (ALT/SGPT) 59 U/L H 06/01/17 1133 Alkaline Phosphatase 78 U/L 06/01/17 1133 Troponin I < 0.012 ng/ml 06/01/17 1133 Total Protein 7.6 gm/dl 06/01/17 1133 Albumin 4.2 g/dl 06/01/17 1133 Total Bilirubin 0.7 mg/dl 06/01/17 0735 Alanine Aminotransferase (ALT/SGPT) 56 U/L 06/01/17 0735 Alkaline Phosphatase 78 U/L 06/01/17 0735 Aspartate Amino Transf (AST/SGOT) 25 U/L 06/01/17 0735 Urine RBC None /HPF 06/01/17 0720 Urine WBC <1 /HPF 06/01/17 0720 Urine Squamous Epithelial Cells None /LPF 06/01/17 0720 Urine Leukocyte Esterase Negative 06/01/17 0720 EKG / Imaging EKG Interpretation NSR, no ST-T abnormalities. Unchanged from previous. Imaging CXR - 1. No acute cardiopulmonary process. Abd/Pelvis CT - Findings are consistent with acute diverticulitis in the mid to distal descending colon although no evidence of perforation or focal abscess formation Diffuse hepatic steatosis Postsurgical changes from a cholecystectomy Additional chronic findings as described Assessment and Plan Problems: (1) Syncope Status: Acute Assessment & Plan: Secondary to 4mg of IV Morphine given an hour before in the ER. His symptoms resolved with Narcan. Will watch in the hospital for recurrence. Watch on telemetry and continuous pulse oximetry. See below. (2) Diverticulitis Status: Acute Assessment & Plan: He presented with 2 days of LLQ pain. CT is c/w mid to distal descending colon diverticulitis. Normal WBC/BP/P. Afebrile. Will treat with oral ciprofloxacin and metronidazole. Will try oral Naprosyn/ Tylenol for pain. Will use 1mg Morphine prn for breakthrough pain. (3) GERD (gastroesophageal reflux disease) Status: Chronic Assessment & Plan: He chronically takes omeprazole. Will use Protonix in the hospital. (4) T2DM (type 2 diabetes mellitus) Status: Chronic Assessment & Plan: Chronically on Exenatide (weekly on Sat) and Metformin. Hold Metformin and use SSI. Copies to: PARTH JONES MD Venous Thromboembolism Antithrombotics Is Pt On Any Antithrombotics?: No Exam Sepsis Risk: No Definite Risk Problem Qualifiers (1) Syncope: Syncope type: unspecified Qualified Codes: R55 - Syncope and collapse CAITLIN BETH MD Jun 01, 2017 14:36
[2017-06-01 15:00] VITALS: BP 115/74
[2017-06-01] MEDS: MORPHINE 2 MG/ML SYR IVP PRN ×2 (17:12→22:21)
[2017-06-01 18:35] VITALS: BP 120/85
[2017-06-01] MEDS: CIPROFLOXACIN 500 MG TAB PO SCH (20:18)
[2017-06-01 23:34] VITALS: BP 111/87
[2017-06-02 03:30] VITALS: BP 108/81
[2017-06-02 06:07] LABS: PLATELET COUNT, AUTOMATED 224 K/uL (150-450)
[2017-06-02 07:21] VITALS: BP 116/83
--- NOTE | 2017-06-02 07:49 | Hospitalist Depart ---
Discharge Summary Reason for Hosp/Final Diag: (1) Syncope Status: Acute Hospital Course & Plan: Secondary to 4mg of IV Morphine given an hour before in the ER. His symptoms resolved with Narcan. He had no problems during his hospitalization. He tolerated 1mg IV morphine. (2) Diverticulitis Status: Acute Hospital Course & Plan: He presented with 2 days of LLQ pain. CT was c/w mid to distal descending colon diverticulitis. Normal WBC/BP/P. Afebrile. Continue with oral ciprofloxacin and metronidazole. Will try oral Naprosyn/ Tylenol for pain. He hasn't needed IV morphine for almost 12 hours. (3) GERD (gastroesophageal reflux disease) Status: Chronic Hospital Course & Plan: He chronically takes omeprazole. Will use Protonix in the hospital. (4) T2DM (type 2 diabetes mellitus) Status: Chronic Hospital Course & Plan: Chronically on Exenatide (weekly on Sat) and Metformin. Departure Weight (Pounds): 212 Weight (Ounces): 7.0 Result Diagram: 06/02/17 0536 06/02/17 0536 Item Value Date Time Whole Blood Glucose 123 mg/DL H 06/01/17 1704 Whole Blood Glucose 144 mg/DL H 06/01/17 2021 Random Glucose 131 mg/dl H 06/02/17 0536 Whole Blood Glucose 127 mg/DL H 06/02/17 0724 Random Glucose 185 mg/dl H 06/01/17 1133 Lactate 2.4 mmol/L H 06/01/17 0735 Total Bilirubin 0.8 mg/dl 06/01/17 1133 Aspartate Amino Transf (AST/SGOT) 40 U/L H 06/01/17 1133 Alanine Aminotransferase (ALT/SGPT) 59 U/L H 06/01/17 1133 Alkaline Phosphatase 78 U/L 06/01/17 1133 Total Bilirubin 1.1 mg/dl 06/02/17 0536 Aspartate Amino Transf (AST/SGOT) 28 U/L 06/02/17 0536 Alanine Aminotransferase (ALT/SGPT) 52 U/L 06/02/17 0536 Alkaline Phosphatase 64 U/L 06/02/17 0536 Troponin I < 0.012 ng/ml 06/01/17 1133 White Blood Count 13.2 k/uL H 06/01/17 0735 White Blood Count 14.3 k/uL H 06/01/17 1133 White Blood Count 10.7 k/uL 06/02/17 0536 Neutrophils (%) (Auto) 68.7 % 06/01/17 0735 Neutrophils (%) (Auto) 64.7 % 06/01/17 1133 Neutrophils (%) (Auto) 61.4 % 06/02/17 0536 Urine Leukocyte Esterase Negative 06/01/17 0720 Urine RBC None /HPF 06/01/17 0720 Urine WBC <1 /HPF 06/01/17 0720 Urine Squamous Epithelial Cells None /LPF 06/01/17 0720 Urine Ketones Trace mg/dL 06/01/17 0720 Imaging CXR (06/01) - 1. No acute cardiopulmonary process. CT abd/pelvis (06/01) - Findings are consistent with acute diverticulitis in the mid to distal descending colon although no evidence of perforation or focal abscess formation Diffuse hepatic steatosis Postsurgical changes from a cholecystectomy Additional chronic findings as described EKG Vent. Rate : 091 BPM Atrial Rate : 091 BPM P-R Int : 146 ms QRS Dur : 104 ms QT Int : 384 ms P-R-T Axes : 027 -01 007 degrees QTc Int : 472 ms Normal sinus rhythm Normal ECG Unchanged from previous Confirmed by CAITLIN BETH ([id number]) on 06/01/2017 2:29:20 PM Condition: Improved Discharge: Home Discharge Instructions Home Meds Active Scripts Ketorolac Tromethamine (KETOROLAC TROMETHAMINE) 10 Mg Tab, 10 MG PO Q6H Y for PAIN, #12 TAB 0 Refills Prov:RODRIGO DINERO MD 06/01/17 Ondansetron (ZOFRAN ODT) 4 Mg Tab.rapdis, 4 MG PO Q6H Y for NAUSEA/VOMITING, # 20 TAB.JONATHAN 0 Refills Prov:RODRIGO DINERO MD 06/01/17 Metronidazole (METRONIDAZOLE) 500 Mg Tablet, 500 MG PO TID, #21 TAB 0 Refills Prov:RODRIGO DINERO MD 06/01/17 Ciprofloxacin Hcl (CIPROFLOXACIN HCL) 500 Mg Tablet, 500 MG PO Q12H, #14 TAB 0 Refills Prov:RODRIGO DINERO MD 06/01/17 Reported Medications Exenatide Microspheres (Bydureon Bcise) 2 Mg/0.85 Ml Auto.injct, QWEEK 06/01/17 Omeprazole Magnesium (PRILOSEC OTC) 20 Mg Tablet.dr, 1 TAB PO QDAY, TAB 06/01/17 Metformin Hcl (METFORMIN HCL) 1,000 Mg Tablet, 1 TAB PO BID, TAB 06/01/17 Discontinued Reported Medications Omeprazole (Omeprazole) 20 Mg Tablet.dr, 20 MG PO QDAY, 0 Refills 10/17/10 Metformin Hcl (Glucophage) 500 Mg Tab, 500 MG PO BIDBS, 0 Refills 10/17/10 [No Rtn Meds] No Conflict Check, 0 Refills 07/16/10 Discontinued Scripts Hydromorphone Hcl (DILAUDID) 2 Mg Tablet, 1 MG PO Q4H Y for PAIN, #8 TAB 0 Refills Prov:RODRIGO DINERO MD 06/01/17 Activity: As Tolerated Special Instructions: Stay on a clear liquid diet for the next 12-24 hours. Then advance to a soft diet for a day or so. Go to the ER for worsening pain, fevers, or vomiting. Copies to: PARTH JONES MD Venous Thromboembolism Antithrombotics Is Pt On Any Antithrombotics?: No Problem Qualifiers (1) Syncope: Syncope type: unspecified Qualified Codes: R55 - Syncope and collapse CAITLIN BETH MD Jun 02, 2017 07:49
[2017-06-02] MEDS: CIPROFLOXACIN 500 MG TAB PO SCH (08:32)
[2017-06-02] MEDS: METRONIDAZOLE 500 MG TABLET PO SCH (08:32)
[2017-06-02] MEDS ORDERED: ENOXAPARIN 40 MG/0.4ML SYR SC SCH (09:00)
[2017-06-02] MEDS ORDERED: PANTOPRAZOLE SOD 40 MG TABEC PO SCH (09:00)
[2017-06-03] MEDS ORDERED: INFLUENZA VIRUS VAC 0.5 ML SYR IM ONLY ONE (09:00)
== END 2017-06-02 07:51 | disposition home or self-care (01) ==
LOC: ER 11:12 → INTOOBSV 13:37 → MED 13:37 → UNDOADMOB 13:37 → MED 13:37
PROVIDERS: ADMIT Internal Medicine; ATTEND Internal Medicine
DX: R55 Syncope and collapse (principal); K57.92 Diverticulitis of intestine, part unspecified, without perforation or abscess without bleeding; E11.9 Type 2 diabetes mellitus without complications; K21.9 Gastro-esophageal reflux disease without esophagitis
CPT/HCPCS: 36415; 36416; 71046; 82948; 84484; 85025; 93005; 96365; 96375; 99284; G0378; J0131; J1815; J1885; J2270; J2405; 82040; 82247; 82310; 82374; 82435; 82565; 82947; 84075; 84132; 84155; 84295; 84450; 84460; 84520

== ENCOUNTER → 2017-06-01 | Outpatient (CLI) | payer BC ==
[~2017-06-01] MED LIST: ALB0.5 INH; ASPI-715 PO; ASPI-719 PO; CIPR-214 PO; EES PO; ESOM20CA31 PO; EXEN2AUT; HYDR2TAB74 PO; IPRUDR INH; KET10 PO; LISI-362 PO; MET500 PO; METF-420 PO; METR-160 PO; NO ROUTINE MEDS; NO RTN MEDS; OMEP-153 PO; OMEP-218 PO; ONDA4TAB PO; PRA20 PO; PRE20 PO; PRILOSEC; no routine meds
== END ==
LOC: AMB 10:38
PROVIDERS: ATTEND Nurse Practitioner
DX: R06.00 Dyspnea, unspecified (principal); E11.649 Type 2 diabetes mellitus with hypoglycemia without coma
CPT/HCPCS: A0425; A0427

== ENCOUNTER 2017-09-10 01:56 | Day surgery (SDC) | payer BC ==
[~2017-09-10] VITALS: Ht 167.6 cm; Wt 90.3 kg
[~2017-09-10 01:56] MED LIST changes: +DAPA1TAB PO; -METF-420 PO; +METF-421 PO; +NORMOSOL R SOLN(*) 1000 ML BAG 1,000 ML IV PRN
[2017-09-10] MEDS ORDERED: PROPOFOL EMUL(*) 10MG/ML 20 ML 20 ML ONE ×2 (08:52→14:53)
[2017-09-10 13:10] VITALS: BP 135/92
[2017-09-10] MEDS ORDERED: NORMOSOL R SOLN(*) 1000 ML BAG 1,000 ML IV PRN (13:15)
[2017-09-10] MEDS ORDERED: LIDOCAINE/SOD BICARB 8.4% SYR ID ONE (13:15)
[2017-09-10 14:58] VITALS: BP 117/79
[2017-09-10 15:13] VITALS: BP 119/93
[2017-09-10 15:14] VITALS: BP 120/80
== END 2017-09-10 15:45 | disposition home or self-care (01) ==
LOC: OR 01:56
PROVIDERS: ATTEND Family Medicine
DX: Z12.11 Encounter for screening for malignant neoplasm of colon (principal); D12.0 Benign neoplasm of cecum; E11.9 Type 2 diabetes mellitus without complications
CPT/HCPCS: 00811; 36416; 45380; 82948; 88305; J2704

== ENCOUNTER 2018-05-29 16:50 | Emergency (ER) | payer BC ==
[~2018-05-29 16:50] MED LIST changes: -METF-421 PO; +METF-452 PO; -METR-160 PO; +METR500T15 PO; -NORMOSOL R SOLN(*) 1000 ML BAG 1,000 ML IV PRN
--- NOTE | 2018-05-29 16:53 | ER Report ---
History and Physical Time Seen By MD: 16:53 (SUZANNE MENDEZ DO) HPI/ROS CHIEF COMPLAINT: Chest pain HISTORY OF PRESENT ILLNESS: Patient is a 53-year-old male here with complaints of left sided chest pain started at approximately 1530 and lasted for approximately 10-15 minutes. Patient reports being short of breath, diaphoretic at that time. Patient does have a history of prior myocardial infarction in 2010 during a nuclear stress test. Patient has a history of diabetes. Denies smoking history. Patient reports that he is asymptomatic at this time. He denies reproducibility of pain, it is unclear whether or not it is similar to prior episodes. Patient did have an episode last which lasted for approximately 1 hour and was located in the shoulder with radiation to the elbow of his left extremity. REVIEW OF SYSTEMS: Constitutional: No fever, no chills. Eyes: No discharge. ENT: No sore throat. Cardiovascular: + Left sided chest pain, no palpitations.+ diaphoresis Respiratory: No cough, + shortness of breath. Gastrointestinal: No abdominal pain, no vomiting. Genitourinary: No hematuria. Musculoskeletal: No back pain. Skin: No rashes. Neurological: No headache. (SUZANNE MENDEZ DO) Allergies: Coded Allergies: Penicillins (Verified Allergy, Severe, itching and swelling of throat, 06/01/17) morphine (Verified Allergy, Severe, quit breathing, 09/03/17) codeine (Verified Allergy, Mild, ITCHING HIVES, 06/01/17) propoxyphene (Unverified Allergy, Unknown, 06/01/17) oxycodone (Verified Adverse Reaction, Mild, EXCESSIVE SEDATION, 06/01/17) Home Meds Reported Medications Dapagliflozin/Metformin HCl (Xigduo Xr 5 mg-500 mg Tablet) 1 Each Tab.bp.24h, 1 TAB PO BID 09/03/17 Exenatide Microspheres (Bydureon Bcise) 2 Mg/0.85 Ml Auto.injct, QWEEK 06/01/17 Omeprazole Magnesium (PRILOSEC OTC) 20 Mg Tablet.dr, 1 TAB PO QDAY, TAB 06/01/17 Hx Smoking: No Smoking Status: Never Smoker Hx Substance Use Disorder: No Hx Alcohol Use: Yes (SUZANNE MENDEZ DO) Constitutional Vital Sign - Last 24 Hours 05/29/18 05/29/18 05/29/18 05/29/18 16:53 16:56 17:00 17:05 Temp 98.5 Pulse 108 Resp 16 17 B/P (MAP) 143/121 (128) 146/102 (117) Pulse Ox 89 O2 Delivery Room Air 05/29/18 05/29/18 05/29/18 05/29/18 17:10 17:25 17:30 17:40 Pulse 107 103 106 Resp 20 12 20 B/P (MAP) 127/93 (104) Pulse Ox 89 90 89 05/29/18 05/29/18 05/29/18 05/29/18 17:55 18:00 18:10 18:15 Pulse 102 106 99 Resp 19 14 13 B/P (MAP) 124/87 (99) Pulse Ox 89 90 90 05/29/18 05/29/18 05/29/18 05/29/18 18:30 18:45 19:00 19:15 Pulse 95 86 Resp 16 16 B/P (MAP) 113/81 (92) 108/86 (93) Pulse Ox 90 87 05/29/18 05/29/18 05/29/18 05/29/18 19:20 19:50 20:00 20:20 Pulse 85 84 82 Resp 14 6 9 B/P (MAP) ???/??? (1665) Pulse Ox 88 91 88 05/29/18 20:30 B/P (MAP) ???/??? (1665) Intake and Output 05/29/18 05/29/18 05/30/18 15:00 23:00 07:00 Intake Total 1000 ml Balance 1000 ml (YAMINI GARNETT DO) Physical Exam General Appearance: The patient is alert, has no immediate need for airway protection and no signs of toxicity. NAD Eyes: Pupils equal and round no pallor or injection. ENT, Mouth: Mucous membranes are moist. Respiratory: There are no retractions, lungs are clear to auscultation. Cardiovascular: Regular rate and rhythm. Gastrointestinal: Abdomen is soft and non tender, no masses, bowel sounds normal. Neurological: No focal neuro findings Skin: Warm and dry, no rashes. Musculoskeletal: Neck is supple non tender. Extremities are nontender, nonswollen and have full range of motion. DIFFERENTIAL DIAGNOSIS: After history and physical exam differential diagnosis was considered for chest pain including but not limited to myocardial ischemia, pericarditis pulmonary embolus, chest wall pain, pleural inflammation and pulmonary infectious causes. (SUZANNE MENDEZ DO) Medical Decision Making Data Points Result Diagram: 05/29/18 1657 05/29/18 1657 Laboratory Hematology Test 05/29/18 16:57 05/29/18 19:58 Red Blood Count 6.63 M/uL (4.00-5.60) Mean Corpuscular Volume 84.1 fL (80.0-96.0) Mean Corpuscular Hemoglobin 28.1 pg (26.0-33.0) Mean Corpuscular Hemoglobin Concent 33.4 g/dL (32.0-36.0) Red Cell Distribution Width 14.0 % (11.5-14.5) Mean Platelet Volume 8.9 fL (7.2-11.1) Neutrophils (%) (Auto) 53.0 % (39.4-72.5) Lymphocytes (%) (Auto) 35.8 % (17.6-49.6) Monocytes (%) (Auto) 9.0 % (4.1-12.4) Eosinophils (%) (Auto) 1.4 % (0.4-6.7) Basophils (%) (Auto) 0.8 % (0.3-1.4) Nucleated RBC Relative Count (auto) 0.1 /100WBC Neutrophils # (Auto) 5.0 K/uL (2.0-7.4) Lymphocytes # (Auto) 3.4 K/uL (1.3-3.6) Monocytes # (Auto) 0.9 K/uL (0.3-1.0) Eosinophils # (Auto) 0.1 K/uL (0.0-0.5) Basophils # (Auto) 0.1 K/uL (0.0-0.1) Nucleated RBC Absolute Count (auto) 0.01 K/uL D-Dimer Quantitative (PE/DVT) < 0.27 ug/ml (0-0.50) Sodium Level 142 mmol/L (137-145) Potassium Level 4.0 mmol/L (3.5-5.0) Chloride Level 106 mmol/L (98-107) Carbon Dioxide Level 22 mmol/L (22-30) Blood Urea Nitrogen 16 mg/dl (9-21) Creatinine 0.90 mg/dl (0.66-1.25) Glomerular Filtration Rate Calc > 60.0 Random Glucose 163 mg/dl (75-110) Calcium Level 9.6 mg/dl (8.4-10.2) Total Bilirubin 0.5 mg/dl (0.2-1.3) Aspartate Amino Transf (AST/SGOT) 43 U/L (0-35) Alanine Aminotransferase (ALT/SGPT) 55 U/L (0-56) Alkaline Phosphatase 77 U/L (0-126) B-Type Natriuretic Peptide < 5 pg/ml (0-100) Total Protein 8.3 g/dl (6.3-8.2) Albumin 5.0 g/dl (3.5-5.0) Lipase 201 U/L (23-300) Troponin I < 0.012 ng/ml Chemistry Test 05/29/18 16:57 05/29/18 19:58 White Blood Count 9.5 k/uL (4.5-11.0) Red Blood Count 6.63 M/uL (4.00-5.60) Hemoglobin 18.6 g/dL (14.0-18.0) Hematocrit 55.7 % (42.0-52.0) Mean Corpuscular Volume 84.1 fL (80.0-96.0) Mean Corpuscular Hemoglobin 28.1 pg (26.0-33.0) Mean Corpuscular Hemoglobin Concent 33.4 g/dL (32.0-36.0) Red Cell Distribution Width 14.0 % (11.5-14.5) Platelet Count 320 K/uL (150-450) Mean Platelet Volume 8.9 fL (7.2-11.1) Neutrophils (%) (Auto) 53.0 % (39.4-72.5) Lymphocytes (%) (Auto) 35.8 % (17.6-49.6) Monocytes (%) (Auto) 9.0 % (4.1-12.4) Eosinophils (%) (Auto) 1.4 % (0.4-6.7) Basophils (%) (Auto) 0.8 % (0.3-1.4) Nucleated RBC Relative Count (auto) 0.1 /100WBC Neutrophils # (Auto) 5.0 K/uL (2.0-7.4) Lymphocytes # (Auto) 3.4 K/uL (1.3-3.6) Monocytes # (Auto) 0.9 K/uL (0.3-1.0) Eosinophils # (Auto) 0.1 K/uL (0.0-0.5) Basophils # (Auto) 0.1 K/uL (0.0-0.1) Nucleated RBC Absolute Count (auto) 0.01 K/uL D-Dimer Quantitative (PE/DVT) < 0.27 ug/ml (0-0.50) Glomerular Filtration Rate Calc > 60.0 Calcium Level 9.6 mg/dl (8.4-10.2) Total Bilirubin 0.5 mg/dl (0.2-1.3) Aspartate Amino Transf (AST/SGOT) 43 U/L (0-35) Alanine Aminotransferase (ALT/SGPT) 55 U/L (0-56) Alkaline Phosphatase 77 U/L (0-126) B-Type Natriuretic Peptide < 5 pg/ml (0-100) Total Protein 8.3 g/dl (6.3-8.2) Albumin 5.0 g/dl (3.5-5.0) Lipase 201 U/L (23-300) Troponin I < 0.012 ng/ml Coagulation Test 05/29/18 16:57 D-Dimer Quantitative (PE/DVT) < 0.27 ug/ml (YAMINI GARNETT DO) EKG/Imaging EKG Interpretation 12 lead EKG: Sinus tachycardia, rate 107, QTC 445, no ischemic changes identified on EKG Rhythm: Sinus tachycardia Gem: normal QRS: normal ST segments: normal Monitor Interpretation: Sinus Tachycardia Imaging Location: [facility] - [place] Patient: Harpal Thomas : 1965 Visit/Account:[id number] Date of Sevice: 05/29/2018 CHEST SINGLE AP Indication: Chest pain.. Comparison: 06/01/2017. Findings: Cardiomediastinal silhouette and pulmonary vessels within normal limits. There is no focal infiltrate or lobar consolidation. No pneumothorax or pleural effusion. No nodule. Upper abdomen is unremarkable. No acute bony abnormality. IMPRESSION: 1. No acute cardiopulmonary process. (SUZANNE MENDEZ DO) ED Course/Re-evaluation ED Course Patient is a 53-year-old male here with complaints of left-sided chest pain which started approximately 1530 last about 10-15 minutes. Patient is asymptomatic at time of evaluation but he does report having an episode of left shoulder pain with radiation to left elbow last . Patient's doctor reportedly told him to come to the emergency department if he had recurrent episodes of chest pain. At the time of the episode patient reports having diaphoresis, shortness breath. Patient does have a history significant for a reported heart attack during a nuclear stress test in 2010 but the patient did not receive stenting nor has he ever had a cardiac catheterization. Patient does have a history significant for diabetes but denies prior history of clots, smoking. Initial troponin was negative, CBC, CMP were unremarkable. Chest x-ray showed no acute process. Normal saline bolus and aspirin were administered. Plan was made to complete a 2nd set of cardiac enzymes at 1930 which is 4 hours post onset of initial episode. Patient was signed out to Dr. Garnett at 1800. Decision to Disposition Date: May 29, 2018 Decision to Disposition Time: 18:00 (SUZANNE MENDEZ DO) ED Course Care assumed at shift change with 2nd diagnostic troponin pending at 1930. Patient's initial studies were unremarkable. His chest pain is resolved spontaneously. Repeat troponin was unremarkable. The results were discussed with the patient. Patient are he has a follow-up appointed scheduled with his primary care Dr. Chase on Thursday. Patient advised to take some ibuprofen for chest discomfort. Decision to Disposition Date: May 29, 2018 Decision to Disposition Time: 20:28 (YAMINI GARNETT DO) Depart Departure Latest Vital Signs Vital Signs Date Time Temp Pulse Resp B/P (MAP) Pulse Ox O2 Delivery O2 Flow Rate FiO2 05/29/18 20:30 ???/??? (1665) 05/29/18 20:20 82 9 88 05/29/18 16:53 98.5 Room Air (YAMINI GARNETT DO) Impression: Primary Impression: Chest pain of uncertain etiology Condition: Improved Disposition: HOME OR SELF-CARE Referrals: PARTH JONES MD (PCP) Patient Instructions: Chest Pain (ED) Additional Instructions: Take ibuprofen 2-3 tablets 3 times a day as needed for inflammatory pain relief Follow-up with Dr. Chase as planned on Thursday Return to the ER for any worsening over the weekend SUZANNE MENDEZ DO May 29, 2018 16:53 YAMINI GARNETT DO May 29, 2018 20:28
[2018-05-29] MEDS ORDERED: ASPIRIN 81 MG CHEW PO ONE (17:00)
[2018-05-29] MEDS ORDERED: NS(*) 0.9% 1000 ML BAG 1,000 ML IV ONE (17:05)
--- NOTE | 2018-05-29 17:06 | EKG ---
FACILITY: [facility] [place] PATIENT NAME: MELVA MAHAJAN : [id number] MR: [id number] V: [id number] EXAM DATE: ORDERING PHYSICIAN: SUZANNE MENDEZ TECHNOLOGIST: Test Reason : Blood Pressure : / mmHG Vent. Rate : 107 BPM Atrial Rate : 107 BPM P-R Int : 132 ms QRS Dur : 098 ms QT Int : 334 ms P-R-T Axes : 045 -29 025 degrees QTc Int : 445 ms Sinus tachycardia Left axis When compared with ECG of 01-JUN-2017 11:08, No significant change was found Confirmed by SORAYA PUENTE ([id number]) on 05/30/2018 1:21:54 AM Referred By: Confirmed By:SORAYA PUENTE
[2018-05-29 17:16] LABS: PLATELET COUNT, AUTOMATED 320 K/uL (150-450)
--- NOTE | 2018-05-29 17:43 | RADIOLOGY IMAGING REPORT ---
FACILITY: [facility] PATIENT NAME: Harpal Thomas : 1965 MR: [id number] V: [id number] EXAM DATE: ORDERING PHYSICIAN: SUZANNE MENDEZ TECHNOLOGIST: Location: [facility] Patient: Harpal Thomas : 1965 Visit/Account:[id number] Date of Sevice: 05/29/2018 CHEST SINGLE AP Indication: Chest pain.. Comparison: 06/01/2017. Findings: Cardiomediastinal silhouette and pulmonary vessels within normal limits. There is no focal infiltrate or lobar consolidation. No pneumothorax or pleural effusion. No nodule. Upper abdomen is unremarkable. No acute bony abnormality. IMPRESSION: 1. No acute cardiopulmonary process. Report Dictated By: Yusuf Meredith at 05/29/2018 5:38 PM Report E-Signed By: Yusuf Meredith at 05/29/2018 5:40 PM WSN:[id number]
== END 2018-05-29 20:42 | disposition home or self-care (01) ==
LOC: ER 16:54
DX: R07.9 Chest pain, unspecified (principal)
CPT/HCPCS: 36415; 71045; 83690; 83880; 84484; 85025; 85379; 93005; 96360; 96361; 99284; J7030; 82040; 82247; 82310; 82374; 82435; 82565; 82947; 84075; 84132; 84155; 84295; 84450; 84460; 84520

== ENCOUNTER → 2018-06-11 | Outpatient (CLI) | payer BC ==
[~2018-06-11] MED LIST changes: +REGADENOSON 0.4 MG/5 ML SYR ONE
--- NOTE | 2018-06-11 23:27 | RT STRESS TEST REPORT ---
[place] [facility] [place] NAME: MELVA MAHAJAN : [id number] MR: [id number] V: [id number] EXAM DATE: ORDERING PHYSICIAN: PARTH JONES TECHNOLOGIST: Missael Acquisition Time: 2018-06-11 14:42:39 Total Exercise Time: 00:09:21 Test Indications: Chest Discomfort Medications: SEE NUCLEAR MED SHEET Protocol: CARMELA 2 Max HR: 144 BPM 85% of Pred: 169 BPM Max BP: 187/092 mmHG Max Work Load: 10.4 METS The patient developed chest pressure with peak exercise. He asked to terminate the test when his hear t rate was just below the target heart rate. His chest pressure improved with rest. He did have several isolated PVCs and one pair of PVCs at peak ex ercise. No runs of ventricular tachycardia were noted. There were nonspecific ST-T wave changes noted. Recovery phase was unremarkable. Confirmed by SIS CORBIN ([id number]) on 06/11/2018 11:26:31 PM Referred By: Overread By: SIS CORBIN
--- NOTE | 2018-06-14 14:26 | RADIOLOGY IMAGING REPORT ---
FACILITY: [facility] PATIENT NAME: Harpal Thomas : 1965 MR: [id number] V: [id number] EXAM DATE: ORDERING PHYSICIAN: PARTH JONES TECHNOLOGIST: Location: [facility] Patient: Harpal Thomas : 1965 Visit/Account:[id number] Date of Sevice: 06/11/2018 EXAMINATION: Single Isotope SPECT Imaging with Exercise and Gated SPECT Imaging DATE OF EXAMINATION: 06/11/18 DATE OF INTERPRETATION: 06/14/18 REQUESTING PHYSICIAN: PARTH JONES INDICATION: The patient is a 53-year-old male evaluated for chest pain. PROCEDURE: After informed consent the patient received an intravenous injection of 12.9 mCi of Tc-9 9m sestamibi followed at the appropriate time interval by rest imaging. The patient then exercised a ccording to the standard Graham protocol for 9 minutes achieving 10.1 METS. Resting heart rate was 84 bpm with a peak heart rate of 144 bpm which is 85 % of maximal predicted heart rate for age. Blood pressure at rest was 138 / 99; blood pressure during exercise was 187 / 92. There was no reported c hest pain during exercise. Exercise was discontinued because of adequate heart rate achieved. Basel ine EKG demonstrates sinus rhythm. There were no EKG changes of ischemia at peak exercise. Approxim ately one minute and 30 seconds prior to the termination of exercise, the patient received an intrave nous injection of 30.1 mCi of Tc-99m sestamibi followed by stress imaging. RAW DATA: Examination of the summed raw data revealed a adequate quality study. There is small area of diaphragmatic attenuation present. MYOCARDIAL PERFUSION: The tomographic images demonstrate small, mild intensity fixed defect in the b ortiz to mid inferior wall that normalizes with prone imaging. This is consistent with diaphragmatic a ttenuation. No transient ischemic dilation.. GATED IMAGES: The gated images demonstrate LVEF 64%. Normal regional wall motion. IMPRESSION: 1. Normal, low risk treadmill ECG 2. Normal myocardial perfusion scan with no evidence of ischemia or infarction. 3. Normal LV systolic function; LVEF 64%. 4. Based on the results of this exam, the patient appears to be at low risk for future cardiovascular events. Report Dictated By: Wild Massey at 06/14/2018 2:17 PM Report E-Signed By: Wild Massey at 06/14/2018 2:22 PM WSN:[id number]
== END ==
LOC: RESP 02:43
PROVIDERS: ATTEND Family Medicine
DX: E88.81 Metabolic syndrome and other insulin resistance (principal); E11.9 Type 2 diabetes mellitus without complications
CPT/HCPCS: 78452; 93017; A9500; J2785